=== PATIENT | female | born 1970 | race African-American/Black ===

== ENCOUNTER 2024-04-29 15:56 | Emergency (ER) | payer OTHER ==
[~2024-04-29] VITALS: Ht 170.2 cm; Wt 108.9 kg
[2024-04-29 16:27] VITALS: BP 148/77; PULSE 73; RESP 18; TEMP 98; O2SAT 97
== END 2024-04-29 18:27 | disposition left against medical advice (07) ==
LOC: MED 15:56
DX: R05.9 Cough, unspecified (principal); R04.0 Epistaxis; Z53.21 Procedure and treatment not carried out due to patient leaving prior to being seen by health care provider

== ENCOUNTER 2024-04-29 23:05 | Emergency (ER) | payer OTHER ==
[~2024-04-29] VITALS: Ht 170.2 cm; Wt 108.9 kg
[2024-04-29 23:19] VITALS: BP 123/86; PULSE 72; RESP 16; TEMP 98.4; O2SAT 98
[2024-04-30 00:52] VITALS: PULSE 65; RESP 16; O2SAT 94
[2024-04-30] MEDS: ALBUTEROL SULFATE/IPRATROPIU 3 ML SOL IH ONE (00:52)
[2024-04-30 01:05] VITALS: BP 121/80; PULSE 76; RESP 18; TEMP 98.1; O2SAT 96
[2024-04-30 01:13] LABS: FLU A ANTIGEN negative (NEGATIVE); FLU B ANTIGEN NEGATIVE (NEGATIVE)
== END 2024-04-30 01:05 | disposition home or self-care (01) ==
LOC: MED 23:05
DX: J06.9 Acute upper respiratory infection, unspecified (principal); B97.89 Other viral agents as the cause of diseases classified elsewhere; Z20.822 Contact with and (suspected) exposure to COVID-19; J44.9 Chronic obstructive pulmonary disease, unspecified; I10 Essential (primary) hypertension; E78.5 Hyperlipidemia, unspecified; F17.210 Nicotine dependence, cigarettes, uncomplicated; Z90.710 Acquired absence of both cervix and uterus
CPT/HCPCS: 71046; 94640; 99284